=== PATIENT | female | born 1955 | race Caucasian/White ===

== ENCOUNTER 2017-08-20 12:58 | Outpatient (CLI) | payer BC | END 2017-08-20 12:59 | disposition home or self-care (01) | LOC: BICRAD 12:58 | PROVIDERS: ATTEND Internal Medicine Hematology & Oncology | DX: Z08 Encounter for follow-up examination after completed treatment for malignant neoplasm (principal); J94.8 Other specified pleural conditions; Z85.3 Personal history of malignant neoplasm of breast | CPT/HCPCS: 71046 ==

== ENCOUNTER 2019-03-11 11:01 | Outpatient (CLI) | payer BC, SELFPAY ==
--- NOTE | 2019-03-11 11:29 | ULT ---
Focused ultrasound of the right chest wall: 03/11/2019 COMPARISON: None HISTORY: Breast cancer, right chest wall mass TECHNIQUE: Multiplanar grayscale sonographic imaging of the area of palpable concern within the right chest wall is provided. FINDINGS: The provided imaging in the area of palpable concern demonstrates a round hypoechoic struct ure which appears to represent the rib near the junction of the rib and sternum. The grief counsellor reports that the area of palpable concern on physical examination and sonographic assessment appears to represent the rib. If physical examination suggest an etiology other than the patient's rib to explain the palpable abnormality, chest CT within be advised. IMPRESSION: In the area of palpable concern, the grief counsellor demonstrates a grossly normal-appearing portion of the overlying right rib. If there is clinical concern for a etiology other than the patient's rib accounting for a palpable finding, CT would then be advised.
== END 2019-03-11 11:02 | disposition home or self-care (01) ==
LOC: SCSULT 11:01
PROVIDERS: ATTEND Internal Medicine Hematology & Oncology
DX: R22.2 Localized swelling, mass and lump, trunk (principal); C50.411 Malignant neoplasm of upper-outer quadrant of right female breast